=== PATIENT | male | born 1995 | race Caucasian/White ===

== ENCOUNTER 2018-03-05 19:17 | Emergency (ER) | payer OTHER ==
[2018-03-05] MEDS ORDERED: HYDROmorphone HCL 1 MG/ML SYRINGE (J1170) As Ordered (19:54)
[2018-03-05] MEDS ORDERED: PROPOFOL 200 MG/20 ML VIAL As Ordered (19:54)
[2018-03-05] MEDS ORDERED: ONDANSETRON 4MG/2ML VIAL (J2405) As Ordered (19:55)
[2018-03-05] MEDS ORDERED: PROPOFOL 1,000 MG/100 ML VIAL As Ordered (20:07)
[2018-03-05] MEDS: PROPOFOL 200 MG/20 ML VIAL IV (20:30)
[2018-03-05] MEDS: NORCO 5/325MG TABLET (BULK FOR ED) PO (21:30)
[2018-03-06] MEDS ORDERED: ONDANSETRON 4MG/2ML VIAL (J2405) IV (02:45)
[2018-03-06] MEDS ORDERED: HYDROmorphone HCL 1 MG/ML SYRINGE (J1170) IV (02:45)
== END 2018-03-05 21:44 | disposition home or self-care (01) ==
LOC: M ED 19:17
DX: S92.152A Displaced avulsion fracture (chip fracture) of left talus, initial encounter for closed fracture (principal); X50.1XXA Overexertion from prolonged static or awkward postures, initial encounter; Y92.39 Other specified sports and athletic area as the place of occurrence of the external cause; Y93.9 Activity, unspecified; Y99.9 Unspecified external cause status
CPT/HCPCS: 73590

== ENCOUNTER → 2018-03-09 | Outpatient (CLI) | payer OTHER | LOC: M RAD 10:24 | DX: M25.572 Pain in left ankle and joints of left foot (principal) ==

== ENCOUNTER → 2019-06-13 | Outpatient (CLI) | payer OTHER ==
[~2019-06-13] MED LIST: CEPH500C PO; CLIN150C14 PO; MEDR4PAK PO
--- NOTE | 2019-06-13 10:21 | PFTRPT ---
Height: 71.00 Inches Weight: 165.00 Lbs BSA: 1.94 Diagnosis: ALLERGIC RHINITIS, UNSPECIFIED DATE OF PROCEDURE: 06/13/2019 ORDERED BY: Raysa Ray Spirometry: Pre and post bronchodilator study of excellent technical quality. Forced vital capacity normal. FEV1 out of proportion. Obstructive index is, therefore, reduced. Flow Volume Loop: Expiratory limb of the flow volume loop consistent with flow rate limitation. Very favorable bronchodilator response is identified. Lung Volumes: Total lung capacity marginally elevated. Residual volume is in proportion. Diffusing Capacity: Diffusing capacity is normal. Hemoglobin: No hemoglobin available for correction. Airway Mechanics: Airway resistance mildly elevated with concomitant decrease in airway conductance. IMPRESSION: Mild reversible obstructive ventilatory defect. Please correlate clinically. MTDD
== END ==
LOC: M CARPUL 09:43
PROVIDERS: ATTEND Physician Assistant
DX: J30.9 Allergic rhinitis, unspecified (principal)